=== PATIENT | female | born 1950 | race Hispanic/Latino ===

== ENCOUNTER 2024-12-07 19:39 | Emergency (ER) | payer SELFPAY ==
[~2024-12-07] VITALS: Ht 152.4 cm; Wt 45.0 kg
[2024-12-07] MEDS ORDERED: SODIUM CHLORIDE 0.9% 1,000 ML IV STA (20:29)
[2024-12-07] MEDS ORDERED: PROMETHAZINE HCL 25 MG/ML AMP IV STA (20:29)
[2024-12-07] MEDS ORDERED: Pantoprazole Sodium 40 MG VIAL (Protonix) IV STA (20:29)
[2024-12-07] MEDS ORDERED: KETOROLAC TROMETHAMINE 30 MG/ML SDV IV ONE (20:30)
[2024-12-07] MEDS ORDERED: ISOVUE-300 (Iopamidol) 100 ML SDV IV ONE (20:30)
[2024-12-07] MEDS ORDERED: ALUM & MAG HYDROX-SIMETHICONE 30 ML PO ONE (20:45)
[2024-12-07] MEDS ORDERED: LIDOCAINE VISCOUS 2% 15 ML UDC PO ONE (20:45)
[2024-12-07 21:33] LABS: BASO% 0.6 % (0-3); EOS% 1.2 % (0-8); HEMATOCRIT 36.7 % (37.0-47.0); HEMOGLOBIN 11.9 g/dl (12.0-16.0); IMMATURE GRANULOCYTES 0.1 % (0.0-5.0); LYMPH% 43.5 % (15-41); MEAN CELL VOLUME 92.7 fL CALC (80.0-100.0); MEAN CORPUSCULAR HGB 30.1 pG CALC (26.0-32.0); MEAN CORPUSCULAR HGB CONC 32.4 g/dL CAL (32.0-36.0); MONO% 7.4 % (2-13); NEUT# 3.18 thou/uL (2.00-7.15); NEUT% 47.2 % (42-76); RED BLOOD COUNT 3.96 mill/uL (4.20-5.60); RED CELL DISTRI WIDTH 13.6 % (11.5-15.5)
[2024-12-07 21:44] LABS: ALBUMIN 4.5 g/dL (3.2-5.0); BILIRUBIN, TOTAL 0.4 mg/dL (0.02-1.3); CREATININE 0.5 mg/dL (0.5-1.0); POTASSIUM 4.4 mmol/l (3.5-5.1); TOTAL PROTEIN 7.9 g/dL (6.3-8.2)
[2024-12-07 21:46] VITALS: BP 150/84
[2024-12-07 22:01] VITALS: BP 176/74
[2024-12-07 22:12] LABS: URINE BILIRUBIN - DIPSTICK Negative (NEGATIVE); URINE BLOOD DIPSTICK Negative (NEGATIVE); URINE GLUCOSE - DIPSTICK Negative (NEGATIVE); URINE KETONE Negative (NEGATIVE); URINE LEUK ESTERASE Trace (NEGATIVE); URINE NITRITE - DIPSTICK Negative (Negative); URINE PROTEIN - DIPSTICK Negative (NEG-TRACE); URINE SPECIFIC GRAVITY 1.015; URINE UROBILINOGEN - DIPSTICK 0.2 E.U./dL (0.2)
[2024-12-07 22:14] LABS: URINE COLOR Yellow
[2024-12-07 23:00] VITALS: BP 168/77
[2024-12-08] MEDS ORDERED: MIRALAX17 GM PO (00:09)
[2024-12-08] MEDS ORDERED: MAGNESIUM CITRATE 296 ML/BTL PO ONE (00:10)
[2024-12-08 00:55] VITALS: BP 168/77
== END 2024-12-08 00:55 | disposition home or self-care (01) | DRG 392 ==
LOC: ED 19:39
PROVIDERS: Family Medicine
DX: K59.00 Constipation, unspecified (principal); E01.0 Iodine-deficiency related diffuse (endemic) goiter; I10 Essential (primary) hypertension; E11.9 Type 2 diabetes mellitus without complications; Z20.822 Contact with and (suspected) exposure to COVID-19
CPT/HCPCS: J2470; J2550; Q9967